=== PATIENT | female | born 1990 | race Hispanic/Latino ===

== ENCOUNTER 2021-02-22 23:57 | Observation (INO) | payer MEDICAID ==
[~2021-02-22] VITALS: Ht 160 cm; Wt 85.7 kg
[2021-02-23 00:04] VITALS: BP 116/73
[2021-02-23] MEDS ORDERED: AMPICILLIN 2GM+NS 100ML 100 ML IV SCH (00:30)
[2021-02-23] MEDS ORDERED: LACTATED RINGERS 1000ML 1,000 ML IV SCH (00:30)
[2021-02-23] MEDS ORDERED: AMPICILLIN 1GM+NS 50ML 50 ML IV SCH (00:30)
[2021-02-23 00:40] LABS: APPEARANCE,URINE Cloudy (CLEAR); BILIRUBIN,URINE Negative (NEGATIVE); COLOR,URINE Yellow (YELLOW); GLUCOSE, URINE (UA) Negative (NEGATIVE); KETONES,URINE Negative (NEGATIVE); LEUKOCYTE ESTERASE ,URINE Large (NEGATIVE); NITRATE,URINE Negative (NEGATIVE); OCCULT BLOOD,URINE Moderate (NEGATIVE); PH,URINE 6.5 (5.0-8.0); PROTEIN,URINE Negative (NEGATIVE); UROBILINOGEN,URINE 0.2 mg/dL (0.2-1.0)
[2021-02-23] MEDS ORDERED: LACTATED RINGERS 1000ML 1,000 ML IV ONE (00:41)
[2021-02-23 00:52] LABS: BACTERIA,URINE Moderate /HPF (None Seen); RBC,URINE 0-1 /HPF (0-1)
[2021-02-27] MEDS ORDERED: PREN-196 PO (20:42)
[2021-03-02] MEDS ORDERED: ACET1TAB25 PO (10:16)
[2021-03-02] MEDS ORDERED: FERR325T22 PO (10:17)
== END 2021-02-23 01:40 | disposition home or self-care (01) ==
LOC: EDH 23:57 → LDH 23:58
PROVIDERS: ADMIT Obstetrics & Gynecology; ATTEND Obstetrics & Gynecology
DX: O26.893 Other specified pregnancy related conditions, third trimester (principal); R10.9 Unspecified abdominal pain; Z3A.39 39 weeks gestation of pregnancy
CPT/HCPCS: 59025; 81001; 87088; G0378; J7120; 96361

== ENCOUNTER 2021-03-17 01:48 | Emergency (ER) | payer MEDICAID ==
[~2021-03-17 01:48] MED LIST: ACET1TAB25 PO; FERR325T22 PO; PREN-196 PO
[2021-03-17 02:53] LABS: BASOPHILS % (AUTO) 0.2 % (0.0-5.0); EOSINOPHILS % (AUTO) 0.8 % (0.0-8.0); HEMATOCRIT 33.5 % (36-48); LYMPHOCYTES % (AUTO) 13.1 % (21.0-51.0); MEAN CORPUSCULAR HGB CONC 32.2 g/dL (32.0-36.0); MEAN CORPUSCULAR VOLUME 83.8 fL (79-99); MONOCYTES % (AUTO) 6.1 % (3.0-13.0); NEUTROPHILS % (AUTO) 79.2 % (40.0-77.0); PLATELET COUNT (AUTO) 446 K/uL (130-400); RED CELL DISTRIBUTION WIDTH 13.2 % (11.0-15.5); WHITE BLOOD COUNT (AUTO) 11.4 K/uL (4.8-10.8)
[2021-03-17 03:06] LABS: CREATININE 0.9 mg/dL (0.5-1.5); POTASSIUM 3.6 mmol/L (3.5-5.1)
[2021-03-17 03:10] LABS: BILIRUBIN,TOTAL 0.2 mg/dL (0.2-1.0); TOTAL PROTEIN, SERUM 7.1 g/dL (6.0-8.3)
[2021-03-17 04:06] VITALS: BP 124/74
[2021-03-17] MEDS ORDERED: DICYCLOMINE 20MG (10MG/ML) AMP IM STA (04:28)
[2021-03-17] MEDS ORDERED: DICYCLOMINE 20MG (10MG/ML) AMP IM ONE (05:50)
[2021-03-17 06:44] LABS: APPEARANCE,URINE Cloudy (CLEAR); BILIRUBIN,URINE Negative (NEGATIVE); COLOR,URINE Yellow (YELLOW); GLUCOSE, URINE (UA) Negative (NEGATIVE); KETONES,URINE Negative (NEGATIVE); LEUKOCYTE ESTERASE ,URINE Moderate (NEGATIVE); NITRATE,URINE Negative (NEGATIVE); OCCULT BLOOD,URINE Large (NEGATIVE); PROTEIN,URINE POS 2+ mg/dL (NEGATIVE); UROBILINOGEN,URINE 0.2 mg/dL (0.2-1.0)
[2021-03-17 06:51] VITALS: BP 120/68
[2021-03-17 07:04] LABS: BACTERIA,URINE Moderate /HPF (None Seen); RBC,URINE 26-50 /HPF (0-1); SQUAMOUS EPITHELIAL CELL,UR Few /HPF (0-2)
[2021-03-17 07:44] VITALS: BP 108/60
== END 2021-03-17 07:47 | disposition home or self-care (01) ==
LOC: EDH 01:48
DX: K80.70 Calculus of gallbladder and bile duct without cholecystitis without obstruction (principal); G89.18 Other acute postprocedural pain; K85.90 Acute pancreatitis without necrosis or infection, unspecified; Z79.899 Other long term (current) drug therapy
CPT/HCPCS: 36415; 76705; 80053; 81001; 83690; 85025; 86140; 87088; 96372; 99284; J0500